=== PATIENT | female | born 1955 | race Caucasian/White ===

== ENCOUNTER 2023-04-01 08:55 | Day surgery (SDC) | payer MEDICARE, BC ==
[2023-03-26 11:14] LABS: BASOPHILS # (AUTO) 0.1 X10'3 (0-0.2); BASOPHILS % (AUTO) 1.1 % (0-1); EOSINOPHILS # (AUTO) 0.3 X10'3 (0-0.9); EOSINOPHILS % (AUTO) 5.6 % (0-6); LYMPHOCYTES # (AUTO) 1.6 X10'3 (1.1-4.8); LYMPHOCYTES % (AUTO) 26.8 % (21-51); MEAN CORPUSCULAR HEMOGLOBIN 29.4 PG (27.0-31.0); MEAN CORPUSCULAR HGB CONC 33.9 g/dL (33.0-36.5); MEAN CORPUSCULAR VOLUME 86.7 FL (78-98); MEAN PLATELET VOLUME 8.6 FL (7.4-10.4); MONOCYTES # (AUTO) 0.6 X10'3 (0-0.9); MONOCYTES % (AUTO) 10.1 % (2-12); NEUTROPHILS # (AUTO) 3.4 X10'3 (1.8-7.7); NEUTROPHILS % (AUTO) 56.4 % (42-75); PRE OP HEMATOCRIT 39.3 % (35.0-45.0); PRE OP HEMOGLOBIN 13.3 g/dL (12.0-16.0); PRE OP PLATELET COUNT 277 X10'3 (140-440); RED BLOOD COUNT 4.53 X10'6 (4.20-5.60); RED CELL DISTRIBUTION WIDTH 13.1 % (11.5-14.5)
[2023-03-26 11:36] LABS: ALBUMIN 3.7 G/DL (3.4-5.0); ALBUMIN/GLOBULIN RATIO 0.9 (1.1-1.5); ALKALINE PHOSPHATASE 96 IU/L (46-116); BLOOD UREA NITROGEN 10 MG/DL (7-18); BUN/CREATININE RATIO 15.6 (10.0-20.0); CALCIUM 9.3 MG/DL (8.5-10.1); CHLORIDE 102 MMOL/L (99-107); CREATININE 0.64 MG/DL (0.40-0.90); PRE OP ALT 29 U/L (30-65); PRE OP ANION GAP 10 (8-16); PRE OP AST 24 U/L (10-37); PRE OP BILIRUB, TOTAL 0.4 MG/DL (0.0-1.0); PRE OP GLUCOSE 108 MG/DL (70-104); PRE OP POTASSIUM 3.6 MMOL/L (3.4-5.1); PRE OP SODIUM 138 MMOL/L (135-145); TOTAL CARBON DIOXIDE 26.3 MMOL/L (24-32); TOTAL PROTEIN 7.6 G/DL (6.4-8.2); eGFR > 90 ML/MIN
[2023-04-01] VITALS (17 sets, daily range): BP systolic 132–183; BP diastolic 63–88; PULSE 69–84; RESP 8–19; TEMP 99; O2SAT 92–99
[~2023-04-01] VITALS: Ht 172.7 cm; Wt 83.9 kg
[~2023-04-01 08:55] MED LIST: ASCO1TAB47; BIOT1CAP3 PO; LEVO125T8 PO; LOSA1TAB41 PO; MAGN500C4 PO; MULT-955 PO; ROSU10TA28 PO; cefazolin 2gm/D5W 100mL 100 ML IV ONE; famotidine 20mg tablet PO ONE; ringers solution, lacted 1,000 ML IV SCH
[2023-04-01] MEDS ORDERED: methylene blue (5mg/ml) 50mg/10ml ampul IV ONE (09:28)
[2023-04-01] MEDS ORDERED: BUPIVAcaine/PF 2.5mg/ml (0.25%) 10ml vial ONE (09:28)
[2023-04-01] MEDS ORDERED: sevoflurane 250ml liquid IH ONE (10:46)
[2023-04-01] MEDS ORDERED: ondansetron/PF 4mg/2ml inj ONE (10:49)
[2023-04-01] MEDS ORDERED: fentaNYL/PF 50MCG/1 ML 2ML syringe ONE (10:49)
[2023-04-01] MEDS ORDERED: midazolam 1 mg/ML 2ml injection ONE (10:49)
[2023-04-01] MEDS ORDERED: dexamethasone sod phosphate 4mg/ml inj. ONE (10:50)
[2023-04-01] MEDS ORDERED: ketorolac trometh. 30mg/ml inj. ONE (10:50)
[2023-04-01] MEDS ORDERED: propofol inj 20 ML IV ONE ×2 (10:50→11:03)
[2023-04-01] MEDS ORDERED: LIDOcaine 2% (20mg/ml) 5ml vial ONE (10:50)
[2023-04-01] MEDS ORDERED: acetaminophen 1,000mg/100ml IV 100 ML IV ONE (11:04)
[2023-04-01] MEDS ORDERED: labetalol 20mg/4ml (5mg/ml) syringe IV ONE (11:08)
[2023-04-01] MEDS ORDERED: LIDOCAINE 1% w/preservative (10 MG/ML) inj. 10mL VIAL IJ ONE (11:27)
[2023-04-01] MEDS ORDERED: ringers solution, lacted 1,000 ML IV SCH (11:40)
[2023-04-01] MEDS ORDERED: morphine 2 MG/ML inj. syringe IV PRN (11:40)
[2023-04-01] MEDS ORDERED: ondansetron/PF 4mg/2ml inj IV PRN (11:40)
[2023-04-01] MEDS ORDERED: fentaNYL/PF 50MCG/1 ML 2ML syringe IV PRN ×2 (11:40)
[2023-04-01] MEDS ORDERED: hydrALAZINE 20mg/ml inj. IV PRN (11:40)
[2023-04-01] MEDS ORDERED: labetalol 20mg/4ml (5mg/ml) syringe IV PRN (11:40)
[2023-04-01] MEDS ORDERED: morphine 4 MG/ML inj SYRINge IV PRN (11:40)
== END 2023-04-01 15:02 | disposition home or self-care (01) ==
LOC: PAS 08:55
PROVIDERS: ATTEND Surgery
DX: C50.311 Malignant neoplasm of lower-inner quadrant of right female breast (principal); C77.3 Secondary and unspecified malignant neoplasm of axilla and upper limb lymph nodes; I10 Essential (primary) hypertension; E78.00 Pure hypercholesterolemia, unspecified; E03.9 Hypothyroidism, unspecified; Z86.010 Personal history of colon polyps; Z98.890 Other specified postprocedural states; Z87.891 Personal history of nicotine dependence; Z72.89 Other problems related to lifestyle; Z88.8 Allergy status to other drugs, medicaments and biological substances; Z79.899 Other long term (current) drug therapy; Z80.41 Family history of malignant neoplasm of ovary
CPT/HCPCS: 19301; 36415; 38525; 38900; 76098; 76998; 80053; 82948; 85025; 93005; J0131; J0690; J1100; J1885; J2250; J2405; J2704; J3010; J3490; J7030; J7120; Q9968; Z7506; Z7508; Z7512; A4215; A4615; A4618; A6258; A7000; J2270

== ENCOUNTER 2023-04-08 05:50 | Day surgery (SDC) | payer MEDICARE, BC ==
[~2023-04-08] VITALS: Ht 172.7 cm; Wt 83.4 kg
[2023-04-08] VITALS (10 sets, daily range): BP systolic 117–149; BP diastolic 62–95; PULSE 72–91; RESP 12–19; TEMP 99.2; O2SAT 93–98
[2023-04-08] MEDS ORDERED: aprepitant 40mg capsule PO ONE (06:53)
[2023-04-08] MEDS ORDERED: methylene blue (5mg/ml) 50mg/10ml ampul IV ONE (07:19)
[2023-04-08] MEDS ORDERED: BUPIVACAINE liposomal/PF 13.3 MG/ML vial IM ONE (07:19)
[2023-04-08] MEDS ORDERED: LIDOcaine 1% (10mg/ml)w/preservative inj. 20ml MDV ONE (07:19)
[2023-04-08] MEDS ORDERED: ondansetron/PF 4mg/2ml inj IV PRN (07:20)
[2023-04-08] MEDS ORDERED: hydrALAZINE 20mg/ml inj. IV PRN (07:20)
[2023-04-08] MEDS ORDERED: meperidine/PF 25mg/ml syringe IV PRN (07:20)
[2023-04-08] MEDS ORDERED: fentaNYL/PF 50MCG/1 ML 2ML syringe IV PRN ×2 (07:20)
[2023-04-08] MEDS ORDERED: ringers solution, lacted 1,000 ML IV SCH (07:20)
[2023-04-08] MEDS ORDERED: labetalol 20mg/4ml (5mg/ml) syringe IV PRN (07:20)
[2023-04-08] MEDS ORDERED: proCHLORperazine 10 MG/2 ml inj IV PRN (07:20)
[2023-04-08] MEDS ORDERED: HYDROmorphone/PF 0.2 MG/ML SYRINGE IV PRN ×2 (07:20)
[2023-04-08] MEDS ORDERED: propofol 1000mg/100ml bottle 100 ML IV ONE (07:22)
[2023-04-08] MEDS ORDERED: fentaNYL/PF 50MCG/1 ML 2ML syringe ONE (07:24)
[2023-04-08] MEDS ORDERED: midazolam 1 mg/ML 2ml injection ONE (07:25)
[2023-04-08] MEDS ORDERED: sevoflurane 250ml liquid IH ONE (07:28)
[2023-04-08] MEDS ORDERED: acetaminophen 1000 MG/100ml vial IV ONE (07:28)
[2023-04-08] MEDS ORDERED: LIDOcaine 1% 30ml preserv. free vial ONE (07:37)
[2023-04-08] MEDS ORDERED: propofol inj 20 ML IV ONE (08:01)
[2023-04-08] MEDS ORDERED: dexamethasone sod phosphate 4mg/ml inj. ONE (08:01)
[2023-04-08] MEDS ORDERED: LIDOcaine 2% (20mg/ml) 5ml vial ONE (08:01)
[2023-04-08] MEDS ORDERED: ondansetron/PF 4mg/2ml inj ONE (08:01)
[2023-04-08] MEDS: BUPIVAcaine/PF 2.5mg/ml (0.25%) 10ml vial ONE ×2 (08:09→09:00)
[2023-04-08] MEDS ORDERED: ketorolac trometh. 30mg/ml inj. ONE (08:28)
[2023-04-08] MEDS ORDERED: bacitracin 15gm ointment TP ONE (08:41)
[2023-04-08 09:42] LABS: HEMATOCRIT 30.7 % (35.0-45.0); HEMOGLOBIN 10.5 g/dl (12.0-16.0); MEAN CORPUSCULAR HEMOGLOBIN 29.7 PG (27.0-31.0); MEAN CORPUSCULAR HGB CONC 34.1 g/dL (33.0-36.5); MEAN CORPUSCULAR VOLUME 87.2 FL (78-98); MEAN PLATELET VOLUME 8.4 FL (7.4-10.4); PLATELET COUNT 281 X10'3 (140-440); RED BLOOD COUNT 3.52 X10'6 (4.20-5.60); RED CELL DISTRIBUTION WIDTH 13.3 % (11.5-14.5); WHITE BLOOD COUNT 8.8 X10'3 (4.5-11.0)
== END 2023-04-08 10:39 | disposition home or self-care (01) ==
LOC: PAS 05:50
PROVIDERS: ATTEND Surgery
DX: D05.11 Intraductal carcinoma in situ of right breast (principal); L76.32 Postprocedural hematoma of skin and subcutaneous tissue following other procedure; I10 Essential (primary) hypertension; E78.00 Pure hypercholesterolemia, unspecified; E03.9 Hypothyroidism, unspecified; E05.00 Thyrotoxicosis with diffuse goiter without thyrotoxic crisis or storm; Z87.891 Personal history of nicotine dependence; Z98.890 Other specified postprocedural states; Z88.5 Allergy status to narcotic agent; Z88.8 Allergy status to other drugs, medicaments and biological substances; Z79.899 Other long term (current) drug therapy; Y83.8 Other surgical procedures as the cause of abnormal reaction of the patient, or of later complication, without mention of misadventure at the time of the procedure
CPT/HCPCS: 19301; 21501; 36415; 82948; 85027; C9290; J0131; J0690; J1100; J1885; J2250; J2405; J2704; J3010; J3490; J7030; J7120; J8501; Z7506; Z7508; Z7512; A4215; A4618; A6258; A6449; A7000; Q9968